=== PATIENT | female | born 1960 | race African-American/Black ===

== ENCOUNTER 2016-12-15 15:58 | Emergency (ER) | payer MEDICAID ==
[~2016-12-15] VITALS: Ht 172.7 cm; Wt 132.0 kg
[~2016-12-15 15:58] MED LIST: ALLO300T2 PO; DILT240C91 PO; ERGO500013 PO; FLOV44 IH; HYDR-4134 PO; IPRA3AMP IH; LISI40TA4 PO; TRIA1TAB92 PO
[2016-12-15 16:12] VITALS: BP 127/82
== END 2016-12-15 22:50 | disposition left against medical advice (07) ==
LOC: ER 22:48
DX: Z53.21 Procedure and treatment not carried out due to patient leaving prior to being seen by health care provider (principal)